=== PATIENT | female | born 1970 | race Caucasian/White ===

== ENCOUNTER 2019-12-02 01:34 | Outpatient (CLI) | payer BC, SELFPAY ==
[2019-12-02 12:03] LABS: TSH (W/Ref FT4) 3.19 uIU/mL (0.36-3.74)
== END 2019-12-02 01:54 ==
PROVIDERS: PCP Nurse Practitioner; Visit Provider Nurse Practitioner Family
DX: N93.9 Abnormal uterine and vaginal bleeding, unspecified (principal)
CPT/HCPCS: 36415; 84443

== ENCOUNTER 2019-12-03 00:46 | Outpatient (CLI) | payer BC, SELFPAY ==
--- NOTE | 2019-12-03 06:45 | DI.US_ITS ---
EXAM: US PELVIS CLINICAL HISTORY: abnormal bleeding,N93.9 TECHNIQUE: Ultrasound performed using standard protocol. COMPARISON: No exams were available for comparison FINDINGS: Pelvic ultrasound was performed transabdominally only as the patient refused transvaginal scanning. The uterus is unremarkable in appearance with a 3 millimeter thick homogeneous endometrial stripe. T he ovaries appear normal by transabdominal criteria. No free fluid identified in the cul-de-sac. Li mited scanning of the kidneys is unremarkable. IMPRESSION: Negative pelvic ultrasound, transabdominal scanning only. DATA REPOSITORY:
== END 2019-12-03 01:06 ==
PROVIDERS: PCP Nurse Practitioner; Visit Provider Nurse Practitioner Family
DX: N93.9 Abnormal uterine and vaginal bleeding, unspecified (principal)
CPT/HCPCS: 76856

== ENCOUNTER 2019-12-09 11:11 | Outpatient (REF) | payer BC, SELFPAY ==
--- NOTE | 2019-12-09 14:00 | PAPFT_PTH ---
PATIENT: SILAS HERRING LOC: [facility] U#:[id number] AGE/SX: 49/F ROOM: RE12/09/[address]: Fish Powers MD : 1970 BED: DIS: 12/09/2019 SPEC #: [id number] RECD: 12/10/19 12:11 STATUS: RADHA REQ #: [id number] DONALDO: 12/09/19 14:[address]: Fish Powers DEPT[facility] Cytology RECD BY: Hema Washington ENTERED: 12/10/19 12:13 SP TYPE: PAPFT OTHR DR: Kerri Turner Tissues: 1 - CX/ENDOCX FOR PAP SMEARS Procedures: PAP THIN PREP/[facility] Screening HPV DNA PROBE Comments: [id number]
== END 2019-12-09 11:31 ==
LOC: LBN 11:11
PROVIDERS: PCP Nurse Practitioner; Visit Provider Obstetrics & Gynecology
DX: Z12.4 Encounter for screening for malignant neoplasm of cervix (principal); Z11.51 Encounter for screening for human papillomavirus (HPV)
CPT/HCPCS: 88142; 87624

== ENCOUNTER 2020-10-26 20:35 | Outpatient (REF) | payer BC, SELFPAY ==
[2020-10-26 19:30] LABS: ALT 23 U/L (14-59)
== END 2020-10-26 20:36 | disposition home or self-care (01) ==
LOC: NCHCN 20:35
PROVIDERS: PCP Nurse Practitioner; Visit Provider Physician Assistant
DX: B35.1 Tinea unguium (principal)
CPT/HCPCS: 84460